=== PATIENT | female | born 1950 | race Caucasian/White ===

== ENCOUNTER 2019-09-05 11:07 | Observation (INO) ==
[2019-09-05] MEDS ORDERED: Ondansetron ODT 4 MG TAB.RAPDIS SL ONE (11:59)
[2019-09-05] MEDS ORDERED: Isovue-370 500 ML BOTTLE IVP ONE ×2 (12:09→13:55)
[2019-09-05] MEDS ORDERED: Hyoscyamine SL 0.125 MG TAB.SUBL SL ONE (12:18)
[2019-09-05 12:29] LABS: Bilirubin,Urine Negative (Negative); Blood,Urine Negative (Negative); Clarity,Urine Cloudy (Clear); Color,Urine Yellow (Yellow); Glucose,Urine (UA) Normal (Normal); Ketones,Urine 15 mg/dL (Negative); Leukocyte Esterase,Urine Negative (Negative); Nitrite,Urine Negative (Negative); Protein,Urine Trace mg/dL (Neg-Trace); Specific Gravity,Urine 1.012 (1.010-1.025); Urobilinogen,Urine Normal (Normal)
[2019-09-05 12:32] LABS: Bacteria,Urine None Seen per hpf (None-Few); Hyaline Casts,Urine None Seen per lpf (None-Few); RBC,Urine 0-3 per hpf (0-3); Squamous Epithelial Cell,Urine Moderate per lpf (None-Few); WBC,Urine 0-3 per hpf (0-3)
[2019-09-05] MEDS: 0.9 % Sodium Chloride 1,000 ML IVC SCH ×2 (12:49→14:42)
[2019-09-05 13:21] LABS: Hematocrit 42.2 % (35.3-44.9); Hemoglobin 13.6 g/dL (11.5-15.4); Immature Granulocytes % 0.4 % (0-4); Lymphocytes % 18.2 %; Mean Corpuscular HGB Conc 32.2 g/dL (31.6-35.5); Mean Corpuscular Hemoglobin 28.1 pg (28.0-33.3); Mean Corpuscular Volume 87.2 fL (83.0-100.0); Platelet Count 369 K/mcL (140-400); Red Blood Count 4.84 M/mcL (3.82-4.97); Red Cell Distribution Width 14.2 % (11.5-14.5); Segmented Neutrophils % 73.5 %
[2019-09-05 13:22] LABS: Basophils % 0.4 %; Eosinophils # 0.1 K/mcL (0.0-0.6); Eosinophils % 0.6 %; Lymphocytes # 1.6 K/mcL (0.6-4.6); Monocytes # 0.6 K/mcL (0.0-1.3); Monocytes % 6.9 %; Neutrophils # 6.6 K/mcL (1.6-8.9)
[2019-09-05 13:50] LABS: Troponin I 0.04 ng/mL (< 0.04)
[2019-09-05 13:55] LABS: BUN/Creatinine Ratio 16 (6-26); Blood Urea Nitrogen 7 mg/dL (8-23); Calcium 9.4 mg/dL (8.6-10.3); Carbon Dioxide 32 mEq/L (23-29); Chloride 101 mEq/L (98-107); Glucose 106 mg/dL (70-105); Osmolality,Calculated 294 (280-300); Potassium 2.4 mEq/L (3.5-5.1); Sodium 143 mEq/L (136-145); eGFR For African Americans > 60 (> 60); eGFR For Non-African Americans > 60 (> 60)
[2019-09-05] MEDS ORDERED: Potassium Chloride 40 MEQ, Lidocaine 1% 2 ML in 0.9 % Sodium Chloride 500 ML IVPB ONE (14:13)
[2019-09-05] MEDS ORDERED: Mag Hydrox/Al Hydrox/Simeth 30 ML UDC PO PRN (16:03)
[2019-09-05] MEDS ORDERED: MOM Conc 10 ML UD.LIQ PO PRN (16:03)
[2019-09-05] MEDS ORDERED: Naloxone 0.4 MG/ML INJ IVP PRN (16:03)
[2019-09-05] MEDS ORDERED: Acetaminophen 325 MG TABLET PO PRN (16:03)
[2019-09-05] MEDS ORDERED: *HR* Promethazine 25 MG/ML VIAL IVP PRN (16:03)
[2019-09-05] MEDS ORDERED: Ondansetron 4 MG/2 ML VIAL IVP PRN (16:03)
[2019-09-05] MEDS ORDERED: Ringers Solution, Lactated 1,000 ML IVC SCH (16:15)
[2019-09-05] MEDS ORDERED: lisinopriL 10 MG TABLET PO SCH (16:15)
[2019-09-05 16:30] LABS: Magnesium 1.8 mg/dL (1.6-2.6)
[2019-09-05] MEDS: lisinopriL 20 MG TABLET PO SCH (18:15)
[2019-09-05] MEDS: *HR* Heparin 5,000 UNIT/ML VIAL SQ SCH (18:15)
[2019-09-05] MEDS: Famotidine 20 MG TABLET PO SCH (20:29)
[2019-09-05] MEDS ORDERED: hydrALAZINE 25 MG TABLET PO ONE (23:32)
[2019-09-06 00:43] LABS: Basophils # 0.1 K/mcL (0.0-0.2); Basophils % 0.5 %; Eosinophils # 0.1 K/mcL (0.0-0.6); Eosinophils % 0.8 %; Hematocrit 37.5 % (35.3-44.9); Hemoglobin 12.1 g/dL (11.5-15.4); Immature Granulocytes % 0.3 % (0-4); Lymphocytes # 2.5 K/mcL (0.6-4.6); Lymphocytes % 25.3 %; Mean Corpuscular HGB Conc 32.3 g/dL (31.6-35.5); Mean Corpuscular Hemoglobin 27.9 pg (28.0-33.3); Mean Corpuscular Volume 86.4 fL (83.0-100.0); Mean Platelet Volume 9.3 fL (9.4-12.4); Monocytes # 0.9 K/mcL (0.0-1.3); Monocytes % 9.1 %; Neutrophils # 6.3 K/mcL (1.6-8.9); Platelet Count 329 K/mcL (140-400); Red Blood Count 4.34 M/mcL (3.82-4.97); Red Cell Distribution Width 14.2 % (11.5-14.5); White Blood Count 9.8 K/mcL (4.3-11.1)
[2019-09-06 01:04] LABS: Alanine Aminotransferase 8 Units/L (7-52); Albumin 3.4 g/dL (3.5-5.7); Albumin/Globulin Ratio 1.1 (1.1-2.2); Alkaline Phosphatase 82 Units/L (34-104); Aspartate Amino Transferase 23 Units/L (13-39); BUN/Creatinine Ratio 13 (6-26); Bilirubin,Total 1.2 mg/dL (0.3-1.0); Blood Urea Nitrogen 5 mg/dL (8-23); Calcium 8.5 mg/dL (8.6-10.3); Carbon Dioxide 21 mEq/L (23-29); Chloride 106 mEq/L (98-107); Glucose 92 mg/dL (70-105); Osmolality,Calculated 289 (280-300); Phosphorous 1.9 mg/dL (2.7-4.5); Potassium 2.8 mEq/L (3.5-5.1); Sodium 141 mEq/L (136-145); Total Protein 6.4 g/dL (6.4-8.9); eGFR For African Americans > 60 (> 60); eGFR For Non-African Americans > 60 (> 60)
[2019-09-06] MEDS ORDERED: Potassium Chloride 40 MEQ, Lidocaine 1% 2 ML in 0.9 % Sodium Chloride 500 ML IVPB ONE (02:00)
[2019-09-06] MEDS: *HR* Heparin 5,000 UNIT/ML VIAL SQ SCH ×2 (04:48→16:59)
[2019-09-06] MEDS ORDERED: amLODIPine 5 MG TABLET PO SCH (09:00)
[2019-09-06] MEDS: Famotidine 20 MG TABLET PO SCH ×2 (09:03→19:18)
[2019-09-06] MEDS: lisinopriL 20 MG TABLET PO SCH (09:04)
[2019-09-06] MEDS: atenoloL 25 MG TABLET PO SCH (09:04)
[2019-09-06] MEDS ORDERED: hydrALAZINE 25 MG TABLET PO ONE (22:29)
[2019-09-07] MEDS: *HR* Heparin 5,000 UNIT/ML VIAL SQ SCH (04:09)
[2019-09-07] MEDS: lisinopriL 20 MG TABLET PO SCH (06:56)
[2019-09-07] MEDS: atenoloL 25 MG TABLET PO SCH (06:56)
[2019-09-07 07:31] LABS: BUN/Creatinine Ratio 19 (6-26); Blood Urea Nitrogen 8 mg/dL (8-23); Calcium 8.9 mg/dL (8.6-10.3); Carbon Dioxide 25 mEq/L (23-29); Chloride 109 mEq/L (98-107); Glucose 121 mg/dL (70-105); Osmolality,Calculated 294 (280-300); Phosphorous 3.3 mg/dL (2.7-4.5); Potassium 3.1 mEq/L (3.5-5.1); Sodium 142 mEq/L (136-145); eGFR For African Americans > 60 (> 60); eGFR For Non-African Americans > 60 (> 60)
[2019-09-07] MEDS ORDERED: lisinopriL 20 MG TABLET PO ONE (09:15)
[2019-09-07] MEDS: Famotidine 20 MG TABLET PO SCH (09:20)
[2019-09-07 11:09] VITALS: BP 188/71
[2019-09-08] MEDS ORDERED: lisinopriL 20 MG TABLET PO SCH (09:00)
== END 2019-09-07 13:48 | disposition home or self-care (01) ==
LOC: 3BNU 11:07 → EMEROOARM 11:07 → 3BNU 17:24
PROVIDERS: ADMIT Internal Medicine; ATTEND Internal Medicine